=== PATIENT | female | born 1990 | race Caucasian/White ===

== ENCOUNTER 2024-11-14 01:56 | Inpatient (IN) | payer OTHER, SELFPAY ==
--- NOTE | 2024-11-14 02:25 | P.HPOB_ITS ---
OB HPI Date/Time Date of admission: 11/14/24 Date Patient Seen: 11/14/24 Time Patient Seen: 02:25 History of Present Condition Chief complaint: active labor, no PNC Date of Last Menstrual Period: 04/09/24 : 3 Para: 2 Narrative: 34yo at 31w2d by stated LMP presents for further evaluation of concerns for labor. Patient presented to facility by private vehicle accompanied by her partner and neighbor. Patient states sure LMP of 04/09/24. NO care this gestation - no labs/US/ surveillance. Pt states this was secondary to housing insecurity and loss of transportation. She states contractions started yesterday (11/13) at 0245 but she initially thought they were arvind glalegos. Denies vaginal bleeding, LOF. Denies any illicit drug or prescription use, +tobacco, denies EtOH. H/o prior CS (children now ages 13, 18), first complicated by postoperative infection. Pt denies any PMHx, denies daily medications other than PNV. care: none Dating criteria OB: based on LMP only Ultrasounds: none Obstetrical complications: other (no care ) Medical complications OB: other (no care ) External History Prior Pregnancies: CS x2 : 3 Para: 2 Indications Operative indications ( section): previous uterine surgery Preadmission Labs Last OB Lab Results: 2 Blood Type A Positive 11/14/24 02:20 Antibody Screen Negative 11/14/24 02:20 Hct 33.2 % (36-46) L 11/14/24 02:20 Hgb 10.8 g/dL (12.0-16.0) L 11/14/24 02:20 Hep Bs Antigen Negative s/c (NEGATIVE) 11/14/24 02:20 Hepatitis C Antibody Negative s/c (NEGATIVE) 11/14/24 02:20 Rubella Antibody 70.7 IU/mL (>15) 11/14/24 02:20 -: Chlamydia screen: unknown, Gonorrhea screen: unknown and Urine: unknown External Labs -: Urine: unknown Prior (ies) Hx # Term Pregnancies: 2 Number of Living Children: 2 Evaluation Evaluation Baseline heart rate: 155 Variability: Average (6-10) monitor accelerations: Present Monitor Decelerations: Absent Contraction Frequency (minutes): 3 Uterine Contraction Intensity: Moderate Category of Tracing: Reactive Status: Category l Dilation (cm): 6 Effacement (%): 100 Dilation: >/=5 cm Effacement: >/=80% Position of cervix: mid Consistency: soft Meds Home Medications and Allergies Allergies Allergy/AdvReac Type Severity Reaction Status Date / Time sulfasalazine Allergy Verified 11/14/24 02:33 Review of Systems Review of Systems ROS: Yes All systems reviewed with the patient and are negative except as otherwise documented OB Exam Vital signs Blood Pressure: 135/84 Pulse Rate: 82 Respiratory Rate: 20 Temperature: 98.4 F HENMT Head: normal to inspection and normocephalic Resp Effort & Inspection: normal respiratory effort and able to speak in complete sentences Cardio Rate: regular rate Extremities Lower extremity: Yes normal to inspection GI Inspection: normal to inspection Other: gravid, fundal height 32cm bedside US limited secondary to pt intolerance - AC 32wga with noted dilated bowel, cephalic presentation External Female Exam: Yes normal external appearance Speculum Exam - Vagina: Yes normal appearance of the vagina Objective Labs 11/14/24 02:20 11/14/24 02:20 Assessment and Plan Assessment and Plan Assessment and Plan narrative: 34yo at 31w2d by stated LMP, no prior PNC presents in active advanced labor, h/o prior CS x2 Advanced labor, no PNC h/o prior CS x2, advanced cervical dilation at time of presentation OR team activated, peds notified and en route CBC, T&S, UDS, infectious serologies ordered BMZ x1 administered maternal VSS/afebrile, cat 1-2 tracing (intermittent variable decelerations) Patient is consented for repeat low transverse section, transfusion of blood products as medically indicated dispo: to OR Time-Based Coding :: [TOTAL MINUTES] spent with patient and on the chart (including review of chart, obtaining history, exam, reviewing outside data, placing orders, documenting exam and treatment plan, and counseling patient) on [DATE].
[2024-11-14] MEDS: BETAMETHASONE 30 MG/5 ML MDV 12 MG IM (02:36)
--- NOTE | 2024-11-14 02:41 | SUR.OPER ---
Supine on Padded OR bed, head on pillow, safety belt at thigh, arms secured on padded arm boards at <90 degrees abduction. Bump under right buttock. Legs uncrossed with pillow under knees, gel pad to heels, tape over blanket to lower legs.
[2024-11-14 02:46] LABS: Add Manual Diff / Slide Review NO; Basophils Absolute Auto 100 /uL (0-100); Basophils Percent Auto 0.5 % (0-2); Eosinophils Absolute Auto 200 /uL (0-450); Eosinophils Percent Auto 0.9 % (2-4); Hematocrit 33.2 % (36-46); Hemoglobin 10.8 g/dL (12.0-16.0); Lymphocytes Absolute Auto 3800 /uL (1100-4500); Lymphocytes Percent Auto 20.3 % (25-40); Mean Corpuscular HGB Conc 32.5 % (30-36); Mean Corpuscular Hemoglobin 26.8 PG (26-34); Mean Corpuscular Volume 82.7 fL (80-100); Monocytes Absolute Auto 900 /uL (0-900); Monocytes Percent Auto 4.6 % (3-14); Neutrophils Absolute Auto 13600 /uL (1500-7000); Neutrophils Percent Auto 73.7 % (50-75); Platelet Count 316 X10^3/uL (150-400); Red Blood Cell Count 4.01 X10^6/uL (4.0-5.2); Red Cell Distribution Width 15.9 % (11.6-14.8); White Blood Cell Count 18.5 X10^3/uL (4.5-11.0)
[2024-11-14 02:52] LABS: HEMOLYSIS < 15 (0-50); Sodium 132 mmol/L (137-145)
[2024-11-14 02:53] VITALS: BP 135/84; PULSE 82; RESP 20; TEMP 36.9
[2024-11-14 02:55] LABS: Alanine Aminotransferase 37 IU/L (<35); Albumin 3.4 g/dL (3.5-5.0); Albumin Globulin Ratio 1.1 (1.0-2.8); Alkaline Phosphatase 251 U/L (38-126); Aspartate Aminotransferase 55 IU/L (14-36); BUN Creatinine Ratio 9.1 (6-22); Bilirubin Total 0.4 mg/dL (0.2-1.3); Blood Urea Nitrogen 6 mg/dL (7-17); Calcium 8.8 mg/dL (8.4-10.2); Carbon Dioxide 21 mmol/L (22-32); Chloride 104 mmol/L (98-107); Estimated Glomerular Filt Rate > 60 mL/min (>60); Glucose 86 mg/dL (70-99); Potassium 3.7 mmol/L (3.4-5.1); Total Protein 6.4 g/dL (6.3-8.2)
[2024-11-14] MEDS: CITRIC ACID/SODIUM CITRATE 15 ML SOLUTION 30 ML PO (03:20)
[2024-11-14] MEDS: CEFAZOLIN 2 GM/100 ML PREMIX 100 ML IV (03:23)
[2024-11-14] MEDS: ACETAMINOPHEN IV 1,000 MG/100 ML VIAL 400 MG IV (03:37)
--- NOTE | 2024-11-14 03:38 | SUR.OPER ---
baby born at 0334
[2024-11-14 03:49] LABS: Urine THC Negative (Negative)
[2024-11-14 03:51] LABS: Urine Amphetamines Negative (Negative); Urine Cocaine Negative (Negative); Urine Opiates Negative (Negative)
[2024-11-14 03:52] LABS: Urine Barbiturates Negative (Negative); Urine Benzodiazepines Negative (Negative); Urine MDMA Negative (Negative); Urine Methadone Negative (Negative); Urine Oxycodone Negative (Negative); Urine Phencyclidine Negative (Negative); Urine Tricyclic Antidepressant Negative (Negative)
[2024-11-14 04:05] LABS: Hepatitis B Surface Antigen NEGATIVE s/c (NEGATIVE); Rubella Antibody IgG 70.7 IU/mL (>15)
[2024-11-14] MEDS: TRANEXAMIC ACID 1,000 MG in SODIUM CHLORIDE 0.9% 100 ML 600 MG IV (04:13)
[2024-11-14 04:20] LABS: HIV 1 & 2 Ab/Ag 4th Gen Combo NEGATIVE (NEGATIVE)
[2024-11-14 04:24] LABS: Hep C Virus Ab w/Reflex Quant NEGATIVE s/c (NEGATIVE)
[2024-11-14 04:27] VITALS: BP 130/74; PULSE 77; RESP 13; TEMP 36.8
[2024-11-14 04:32] VITALS: BP 139/74; PULSE 78; RESP 14; O2SAT 100
[2024-11-14 04:37] VITALS: BP 137/74; PULSE 72; RESP 14; O2SAT 100
--- NOTE | 2024-11-14 04:37 | PM.OBCS.1 ---
Operative Date/Time/Diagnoses Date of procedure: 11/14/24 Time of procedure: 03:00 Pre-op diagnosis: 1) IUP at approx 30-34wga; 2) no care; 3) advanced labor; 4) h/o prior CS x2 Post-op diagnosis: same Procedure & Clinicians Procedure: repeat low transverse section Same procedure as scheduled: Yes Indications: 1) IUP at approx 30-34wga; 2) no care; 3) advanced labor; 4) h/o prior CS x2 Surgeon: Darcy Rizvi Curing Finisher: Jorge Yo Reason for Curing Finisher: acuity of case, retraction, cutting of suture Anesthesia Type: Spinal Operative Notes Findings: live born male infant in cephalic presentation grossly normal uterus, bilateral adnexae moderate prefascial scar consistent with prior procedure densely adherent placenta without accreta Closure Type: primary Specimen(s): cord blood and cord pH Intraoperative meds administered: Pitocin and Tranexamic acid Estimated Blood Loss (mL): 400 Blood products transfused: none Complications: none Baby 1: Delivery Date: 11/14/24 Delivery Time: 03:38 Gender: Male Presentation: vertex Placental Delivery Description: Manual Removal (densely adherent ) Cord Vessel Description: 3 Vessels score (1 min): 9 score (5 min): 9 Narrative: Pt was taken to the operating room and transferred to OR table.? The spinal was placed per anesthesia.? The patient was placed in the supine position, prepped and draped in a sterile fashion.? Prior to incision the level of anesthesia was rechecked and found to be adequate.? A timeout was once again performed. A pfannensteil incision was made 2cm superior to the pubic symphysis in line with prior scar.? This incision was carried down sharply to the level of the rectus fascia with noted moderate scar consistent with prior procedure.? The fascia was incised sharply with knife and the incision was extended bilaterally and superiorly using heller scissors. The superior border of the fascia was elevated with two Roly clamps and bluntly dissected off of the rectus muscles followed by incision of the median raphe with the heller scissors.? The rectus muscles were in the midline and the peritoneum was identified.? The peritoneum was entered sharply under direct visualization.? The peritoneal opening was then extended manually.? The s3b multi sensor operator?s hand was inserted in the abdomen and the uterus was found to be in a non-rotated position. The bladder blade was then inserted. The vesicouterine peritoneum was identified, elevated using DeBakey forceps and incised in the midline using Metzenbaum scissors.? The incision was carried laterally and superiorly bilaterally.? A bladder flap was further developed digitally and the bladder blade was replaced.? Next, a low transverse incision was made in the uterus using the knife.? The incision was extended laterally and superiorly bilaterally bluntly.? The s3b multi sensor operator?s hand was then inserted into the uterus to find an infant in the vertex OP position.? The bladder blade was removed and infant?s vertex was grasped, flexed and brought to the incision where the was delivered atraumatically using fundal pressure.? The cord was doubly clamped and cut after [address] Yo then broke scrub and took to warmer for further evaluation and resuscitation. Remainder of case performed by Dr. Rizvi.? The placenta was noted to be densely adherent and necessitated manual removal; no evidence of accreta. The placenta was then passed off the field.? IV pitocin and TXA administered. The uterus was exteriorized and the uterine cavity was wiped of all clots and debris.? The bladder blade was reinserted and the hysterotomy incision was repaired with #0 vicryl in a running locked fashion, followed by a second #0 vicryl in an imbricating fashion.? Tubes, ovaries and adnexae were visualized and noted to be grossly normal in appearance.? The uterus was replaced into the abdomen without difficulty and the hysterotomy was noted to be hemostatic off of tension following additional figure of 8 suture x2 at the left apex of the hysterotomy. Perclot was placed along the denuded lower uterine segment for further hemostasis prophylaxis.? The rectus fascia was closed using #1 vicryl in a running fashion.? The incision was irrigated and hemostasis was achieved using the bovie.? The subcutaneous space was reapproximated using 3-0 vicryl in a running fashion.? The skin was closed using 4-0 monocryl followed by application of steristrips and abdominal compression dressing.? All counts were correct x2.? The pt tolerated the procedure well and without difficulty. Fundal contents were expressed and fundus noted to be firm, level noted prior to patient transfer to PACU in stable condition.? Post-operative Condition: stable Disposition: PACU Aftercare: routine postop
[2024-11-14 04:43] VITALS: BP 140/79; PULSE 76; RESP 15; O2SAT 98
[2024-11-14 06:51] LABS: Add Manual Diff / Slide Review NO; Basophils Absolute Auto 0 /uL (0-100); Basophils Percent Auto 0.2 % (0-2); Eosinophils Absolute Auto 0 /uL (0-450); Eosinophils Percent Auto 0.3 % (2-4); Hematocrit 29.8 % (36-46); Hemoglobin 9.4 g/dL (12.0-16.0); Lymphocytes Absolute Auto 2000 /uL (1100-4500); Lymphocytes Percent Auto 10.6 % (25-40); Mean Corpuscular HGB Conc 31.4 % (30-36); Mean Corpuscular Hemoglobin 26.1 PG (26-34); Mean Corpuscular Volume 83.1 fL (80-100); Monocytes Absolute Auto 400 /uL (0-900); Neutrophils Absolute Auto 16600 /uL (1500-7000); Neutrophils Percent Auto 86.9 % (50-75); Platelet Count 279 X10^3/uL (150-400); Red Blood Cell Count 3.59 X10^6/uL (4.0-5.2); Red Cell Distribution Width 16.2 % (11.6-14.8); White Blood Cell Count 19.1 X10^3/uL (4.5-11.0)
[2024-11-14] MEDS: LABETALOL 20 MG/4 ML SYRINGE IV (07:19)
[2024-11-14] MEDS: KETOROLAC 30 MG/ML VIAL IV ×2 (11:18→18:04)
[2024-11-14] MEDS: ACETAMINOPHEN 325 MG TABLET 650 MG PO ×2 (11:18→18:05)
--- NOTE | 2024-11-14 16:03 | PM.OBPN.1 ---
Subjective - OB Subjective Patient comments: no complaints, pain well controlled, incisional pain, tolerating diet and flatus present baby status: doing well Narrative: Mother and baby doing well. Child protective services and social work program coordinator engaged. Isolated BP elevation this am but no further BP elevations through the day Date Patient Seen: 11/14/24 Time Patient Seen: 16:05 Exam Vital Signs (past 8 hours): Oxygen Delivery Method Room Air Oxygen Flow Rate 99 Const General: cooperative and comfortable Nutritional Appearance: average body habitus Orientation: alert and oriented x3 HENMT Head: normal to inspection, atraumatic and abrasion Ears: hearing grossly normal bilaterally Face and sinus: face symmetric Eyes General: appearance normal, both eyes and all related structures Conjunctivae: conjunctivae normal Sclera: sclerae normal EOM: EOM intact bilaterally Neck Neck: normal visual inspection Resp Effort & Inspection: normal respiratory effort and able to speak in complete sentences GI Inspection: normal to inspection and incision (Surgical dressings clean and dry) External Female Exam: other (No significant bleeding noted) Extrem General: no calf tenderness Psych Appearance: grossly normal Mental Status: mental status grossly normal Speech and Movement: speech and movement normal Mood: congruent mood Affect: normal affect Attitude: cooperative Thought Process: normal Thought Content: normal Judgment: judgment good Objective Labs 11/14/24 06:06 11/14/24 02:20 Labs: Laboratory Results - last 24 hr 11/14/24 11/14/24 11/14/24 02:20 03:20 06:06 WBC 18.5 H 19.1 H RBC 4.01 3.59 L Hgb 10.8 L 9.4 L Hct 33.2 L 29.8 L MCV 82.7 83.1 MCH 26.8 26.1 MCHC 32.5 31.4 RDW 15.9 H 16.2 H Plt Count 316 279 Neut % (Auto) 73.7 86.9 H Lymph % (Auto) 20.3 L 10.6 L Nash % (Auto) 4.6 2.0 L Eos % (Auto) 0.9 L 0.3 L Baso % (Auto) 0.5 0.2 Neut # (Auto) 29697 H 07162 H Lymph # (Auto) 3800 2000 Nash # (Auto) 900 400 Eos # (Auto) 200 0 Baso # (Auto) 100 0 Sodium 132 L Potassium 3.7 Chloride 104 Carbon Dioxide 21 L BUN 6 L Creatinine 0.66 Estimated GFR > 60 BUN/Creatinine Ratio 9.1 Glucose 86 Calcium 8.8 Total Bilirubin 0.4 AST 55 H ALT 37 H Alkaline Phosphatase 251 H Total Protein 6.4 Albumin 3.4 L Globulin 3.0 Albumin/Globulin Ratio 1.1 U Opiates 300ng/mL cut Negative Ur Oxycodone Screen Negative Urine Methadone Screen Negative Ur Barbiturates Screen Negative U Tricyclic Antidepress Negative Ur Phencyclidine Scrn Negative Ur Amphetamines Screen Negative U Methamphetamines Scrn Positive H Ur MDMA Scrn (Ecstasy) Negative U Benzodiazepines Scrn Negative Urine Cocaine Screen Negative U Marijuana (THC) Screen Negative Urine pH TNP Urine Specific Graham TNP Ur Creatinine TNP Hep Bs Antigen Negative Hepatitis C Antibody Negative HIV 1&2 Ab/P24 Ag 4thGn Negative Rubella Antibody 70.7 Blood Type A Positive Antibody Screen Negative Assessment & Plan Plan day: 0 Time-Based Coding :: 10 minutes spent with patient and on the chart (including review of chart, obtaining history, exam, reviewing outside data, placing orders, documenting exam and treatment plan, and counseling patient) on 11/14/2024.
[2024-11-14] MEDS: PRENATAL VIT,CALC/IRON/FOLIC 1 TABLET 1 TAB PO (18:05)
--- NOTE | 2024-11-14 19:19 | CM.DANOTE ---
CERTIFIED ART THERAPIST Assessment Note: Pt is a 34yo female, resident of [facility], is s/p section for a baby boy. Currently lives in an , parked at a friend's property in [place]. Patient does not have an established PCP at this time (preference for a PCP if possible), insurance is [employer]. Reviewed chart and discussed with multidisciplinary team pt's medical status and initial discharge needs. CERTIFIED ART THERAPIST consulted due to no care, housing insecurity and a positive UDS for both mother and baby. RN reports a CPS report has been placed due to positive UDS for baby and an shopping investigator will arrive at bedside soon. Per RN, pt seems appropriate with care for baby but was not expecting to give to baby until December 2024 so there are no baby items prepared for safe discharge home. CERTIFIED ART THERAPIST met w/patient at bedside; introduced self and role. Present in the room is patient's partner, Zachary Rivas. Patient was found in bed, alert and oriented, cooperative with assessment. Pt confirmed living situation and good support in partner. Patient states she has partial custody of her 13yo. Patient reports she is not prepared for baby boy's arrival because she thought he would arrive in December; patient expressed no transportation being a barrier to the lack of care. Patient expressed preference in discharge home when cleared. CERTIFIED ART THERAPIST discussed resources in the community to include [facility] and [facility]. Pt states she is open to referral sent to [facility] for possible housing support/baby items. Also open to [facility] for any type of activation of WIC benefits and/or baby items. [facility] - CERTIFIED ART THERAPIST calls [facility] and spoke with Makenzie, it is recommended for pt to call 211 and complete intake as well as the [facility] assessment website. CERTIFIED ART THERAPIST completed assessment per pt consent, pt states she completed 211 intake last month. CERTIFIED ART THERAPIST left a voice message with Fitness Leader, [place], for continued coordination ph# [phone]. [facility] ([place]) - CERTIFIED ART THERAPIST calls [facility] and spoke with Jie. It is reported diapers, wipes and possible clothing can be available through their program. They state they can continue with [place] [facility] activation and other basic needs. . Plan: Anticipating discharge home in 48-72 hours or when medically cleared, CPS and other community services to follow. CM team will continue the following date for continued coordinated care. Alessia Sterling [facility] Discharge Planning/Care Management CM Discharge Assessment Start: 11/14/24 19:15 Freq: Status: Active Protocol: Document 11/14/24 19:16 MW (Rec: 11/14/24 19:17 MW [id number]) Discharge Planning Assessment Assigned Belt Sewer JOSEPH Aggarwal DPOA/Assigned Designee Name Zachary Rivas, Partner/FOB Advance Directives? No History Provided By Patient,Medical Record Has Patient been admitted in last 30 No days? Prior Living Arrangements RV Household Members significant other Type of transporation used prior to Relies on Others admit Independent with ADL's Yes Is patient alert and oriented? Yes Caregiver for Another Yes: Children Discharge Plan Home Whiteboard Updated in Patient Room with Yes name and ext. # of Belt Sewer Comment [phone] Review Status In Process Please Provide Date Initial DC 11/14/24 Assessment Was Performed Next Review Type Continued Stay Review
[2024-11-15] MEDS: KETOROLAC 30 MG/ML VIAL IV (00:43)
[2024-11-15 01:09] LABS: HSV Type 1 AB, IgG Reactive (Non Reactive)
[2024-11-15 04:39] LABS: RPR Screen Non Reactive (Non Reactive)
[2024-11-15] MEDS: ACETAMINOPHEN 325 MG TABLET 650 MG PO ×3 (05:22→19:36)
[2024-11-15 06:20] LABS: Hemoglobin 7.4 g/dL (12.0-16.0)
[2024-11-15] MEDS: IBUPROFEN 600 MG TABLET PO ×3 (07:49→19:39)
[2024-11-15] MEDS: PRENATAL VIT,CALC/IRON/FOLIC 1 TABLET 1 TAB PO (07:50)
--- NOTE | 2024-11-15 08:10 | P.DS_ITS ---
Discharge Providers Provider Date of admission: 11/14/24 01:56 Discharge Date: 11/15/24 Consults: 11/14/24 02:11 Consult to Anesthesiology Urgent Comment: Consulting Provider: Norma Ackerman Reason for consultation: Epidural 11/14/24 05:45 Consult to Cover Cutter Machine Routine Comment: Consult to INSPECTOR BULLET SLUGS - Slot Editor Routine Comment: Slot Editor Consult needed for:: Other reason (Comment) Comment: no care, insecure housing, +UDS Discharge provider: Darcy Rizvi MD Summary Hospital Course Date Patient Seen: 11/15/24 Time Patient Seen: 07:45 Diagnoses: POD1 s/p [facility] Hospital Course: 34yo presented to facility in advanced presumed labor with stated LMP 04/09/24 (YENY 01/14/25) without prior care this . Pt stated on admission that lack of care was secondary to housing/transportation insecurity. Initial SVE 4cm with progression <1h to 6cm with active contractions. Patient stated h/o prior CS x2 and was taken urgently to OR for delivery. Asphalt Spreader Operator, Dr. Jorge Yo, assisted with start of surgical case and then broke scrub at time of delivery to assume care of . Procedure was performed under spinal analgesia, delivery of LBMI who at time of delivery was noted to be likely term gestational age per size and transition. Procedure was complicated by moderate prefascial scar, however limited intra-abdominal adhesive disease. Patient had a subsequently uncomplicated course, noted new sustained severe range BP (170s/70s) postoperatively and received IV labetalol 20mg x1 with appropriate response and remained normotensive thereafter. UDS on admission resulted +methamphetamines. Formula feeding exlusively. CPS and SW engaged. Patient discharged to home evening of POD1 meeting all discharge milestones with planned discharge to board as remains on CPS hold. Plan for routine 1wk incision check in office. Peripartum Data Delivery Method: Section complications: other (CPS hold of , SW consult ) [place] 1: Gender: Male Disposition of : home Discharge Diagnosis (1) Encounter for maternal care for scar from repeat delivery: Status: Acute (2) Positive urine drug screen: Status: Acute (3) Smoking (tobacco) complicating the puerperium: Status: Acute Status at Discharge Cognitive/behavioral status at discharge: oriented Functional status at discharge: independent ambulation Overall status at discharge: patient is back to baseline Time Spent with Patient Time attestation: Total time spent providing and/or coordinating discharge services: Time spent: Less than 30 minutes Specific discharge activities: activity and weight lifting restrictions Time spent discussing smoking cessation with patient: 3 to 10 minutes Objective Labs 11/15/24 05:55 11/14/24 02:20 Labs: Laboratory Results - last 24 hr 11/14/24 11/15/24 02:20 05:55 Hgb 7.4 L Hct 23.0 L RPR w/Rflx to Titer Non reactive HSV I IgG Index Reactive A Exam Vital Signs (past 8 hours): Oxygen Delivery Method Room Air Oxygen Flow Rate 99 maternal VSS/afebrile, reviewed in OBIX Const General: cooperative, comfortable and well developed Nutritional Appearance: average body habitus Orientation: alert, awake and oriented x3 Limitations: mental status not altered HENMT Head: normal to inspection Resp Effort & Inspection: normal respiratory effort and able to speak in complete sentences Cardio Pulses: normal peripheral pulses GI Palpation: soft Other: compression bandage removed, steris in place c/d/i mild appropriate postoperative tenderness, fundus firm << umb and non-tender Other: deferred Skin General: no rashes or lesions noted Neuro General: patient alert, patient awake and patient oriented x3 Extrem General: normal to inspection Psych Mental Status: mental status grossly normal Judgment: limited (poor insight into risks associated to self and baby with insufficient PNC ) Discharge Plan Discharge Plan Patient Disposition: Home Discharge orders & Medications Prescriptions: New acetaminophen 325 mg Tablet 650 mg PO Q6H Qty: 30 0RF ibuprofen 600 mg Tablet 600 mg PO Q6H Qty: 30 0RF oxycodone 5 mg Tablet 5 mg PO Q4H PRN (Reason: Pain, Moderate (4-6)) Qty: 10 0RF Visit Report/Discharge Packet Stand Alone Forms: Patient Portal/API, Stroke Signs & Symptoms
[2024-11-15 08:46] VITALS: BP 140/79; PULSE 76; RESP 15; TEMP 36.8
[2024-11-15] MEDS: NIFEdipine 30 MG TAB ER PO (13:43)
--- NOTE | 2024-11-15 15:17 | CM.DPNOTE ---
HANDLE AND VENT MACHINE OPERATOR Discharge Plan Continued: Reviewed EMR and team rounds for pt?s medical status. Discharge orders are placed for patient and baby will remain admitted for observation. HANDLE AND VENT MACHINE OPERATOR spoke with pt RN who reports DCYF Career Manager has been assigned for patient - Jaqueline Amauri, ph#[phone]. [facility] Reference #[id number]. HANDLE AND VENT MACHINE OPERATOR left a voice message for DCYF Career Manager in case other clinicals needed at this time. HANDLE AND VENT MACHINE OPERATOR left a voice message for [facility], [place] Diane, to follow up on intake assessment completed for patient and family on 11/14/24. Plan: Anticipating pt to discharge to community, DCYF to follow investigation as well as other community resources to contact pt for continued care coordination. CM Team will continue to follow for coordination of discharge plans. ZI Hoffman
[2024-11-16] MEDS: IBUPROFEN 600 MG TABLET PO ×2 (03:16→15:54)
[2024-11-16] MEDS: ACETAMINOPHEN 325 MG TABLET 650 MG PO ×2 (03:16→15:54)
[2024-11-16 06:49] LABS: Hematocrit 26.6 % (36-46); Hemoglobin 8.4 g/dL (12.0-16.0); Mean Corpuscular HGB Conc 31.4 % (30-36); Mean Corpuscular Hemoglobin 26.4 PG (26-34); Mean Corpuscular Volume 84.1 fL (80-100); Platelet Count 356 X10^3/uL (150-400); Red Blood Cell Count 3.16 X10^6/uL (4.0-5.2); Red Cell Distribution Width 16.2 % (11.6-14.8); White Blood Cell Count 23.5 X10^3/uL (4.5-11.0)
[2024-11-16 06:54] LABS: Add Manual Diff / Slide Review YES; Alanine Aminotransferase 34 IU/L (<35); Albumin 3.1 g/dL (3.5-5.0); Albumin Globulin Ratio 1.2 (1.0-2.8); Alkaline Phosphatase 153 U/L (38-126); Aspartate Aminotransferase 42 IU/L (14-36); BUN Creatinine Ratio 25.8 (6-22); Bilirubin Total 0.2 mg/dL (0.2-1.3); Blood Urea Nitrogen 16 mg/dL (7-17); Calcium 8.8 mg/dL (8.4-10.2); Carbon Dioxide 23 mmol/L (22-32); Chloride 103 mmol/L (98-107); Estimated Glomerular Filt Rate > 60 mL/min (>60); Globulin 2.6 g/dL (1.7-4.1); Glucose 111 mg/dL (70-99); HEMOLYSIS < 15 (0-50); Potassium 3.5 mmol/L (3.4-5.1); Sodium 135 mmol/L (137-145); Total Protein 5.7 g/dL (6.3-8.2)
[2024-11-16 07:06] LABS: Neutrophils Absolute Manual 17625 /uL (3000-5900); Nucleated Red Blood Cells 2 #/Diff; Total Cells Counted 100
[2024-11-16 07:07] LABS: Anisocytosis 1+
[2024-11-16 07:08] LABS: Macrocytosis 1+
[2024-11-16 15:24] VITALS: BP 122/68; PULSE 72; RESP 17; TEMP 36.7
[2024-11-16 15:54] VITALS: TEMP 36.7
== END 2024-11-16 16:10 | disposition home or self-care (01) | DRG 540 ==
PROVIDERS: Admitting Provider Obstetrics & Gynecology; Referring Provider Obstetrics & Gynecology; Visit Provider Obstetrics & Gynecology
PROC: 10D00Z1 Extraction of Products of Conception, Low, Open Approach (ICD-10-PCS; CPT 59514; principal; 2024-11-14 03:15)
DX: O60.14X0 Preterm labor third trimester with preterm delivery third trimester, not applicable or unspecified (principal); Z3A.31 31 weeks gestation of pregnancy; Z37.0 Single live birth; O34.211 Maternal care for low transverse scar from previous cesarean delivery; O99.334 Smoking (tobacco) complicating childbirth; F17.200 Nicotine dependence, unspecified, uncomplicated; O99.324 Drug use complicating childbirth; F15.90 Other stimulant use, unspecified, uncomplicated; O75.89 Other specified complications of labor and delivery; R03.0 Elevated blood-pressure reading, without diagnosis of hypertension; O99.62 Diseases of the digestive system complicating childbirth; K66.0 Peritoneal adhesions (postprocedural) (postinfection); Z59.82 Transportation insecurity; Z59.89 Other problems related to housing and economic circumstances; Z67.10 Type A blood, Rh positive
CPT/HCPCS: 36415; 59050; 59514; 76815; 80053; 80305; 85007; 85014; 85018; 85025; 86592; 86695; 86762; 86803; 86850; 86900; 86901; 87086; 87340; 87389; 99222; 99238; G0379; J0131; J0690; J0702; J1100; J1885; J2274; J2405